=== PATIENT | female | born 1955 | race Caucasian/White ===

== ENCOUNTER → 2022-12-08 08:34 | Outpatient (CLI) | payer MEDICARE, OTHER, SELFPAY ==
--- NOTE | 2022-12-08 08:38 | DI.RAD.S_ITS ---
PROCEDURE: XR LUMBAR SPINE MIN 4V INDICATIONS: BACK PAIN TECHNIQUE: 5 views of the lumbar spine were acquired, including bilateral oblique views. COMPARISON: None. FINDINGS: Bones: 5 nonrib-bearing vertebrae are present. Lower lumbar facet arthropathy. Mild degenerative anterolisthesis of L4 on L5 measuring 6 mm. Multilevel disc height loss, most severe at L5-S1. . No vertebral body compression fractures. No suspicious bony lesions. Soft tissues: Overlying bowel gas pattern is normal. No suspicious soft tissue calcifications. Oblique images: No pars defects. IMPRESSION: Lower lumbar facet arthropathy. Degenerative disc disease. Comment: Lumbar spine MRI may be helpful. Dictated by: Shimon Foley M.D. on 12/08/2022 at 9:12 Approved by: Shimon Foley M.D. on 12/08/2022 at 9:13
== END ==
PROVIDERS: Referring Provider Physical Medicine & Rehabilitation; Visit Provider Physical Medicine & Rehabilitation
DX: M51.37 Other intervertebral disc degeneration, lumbosacral region (principal); M47.816 Spondylosis without myelopathy or radiculopathy, lumbar region; M43.16 Spondylolisthesis, lumbar region; M48.00 Spinal stenosis, site unspecified; M54.9 Dorsalgia, unspecified
CPT/HCPCS: 72110; 99214

== ENCOUNTER → 2022-12-22 08:15 | Outpatient (CLI) | payer MEDICARE, OTHER, SELFPAY ==
--- NOTE | 2022-12-22 08:18 | DI.MRI.S_ITS ---
PROCEDURE: MR LUMBAR SPINE WO CON INDICATIONS: L4-5 spondylolisthesis, axial low back pain TECHNIQUE: Noncontrast sagittal T1 spin echo and T2 fast echo, sagittal STIR, and T2 fast spin echo through the lumbar spine. In cases with scoliosis, additional coronal T2 fast spin echo may be performed. COMPARISON: [facility], CR, XR LUMBAR SPINE MIN 4V, 12/08/2022, 8:43. FINDINGS: Image quality: Excellent. Alignment and Curvature: Grade 1 anterolisthesis of L4 on L5. Bone Marrow: Marrow is of normal overall signal. No acute vertebral body compression fractures. Spinal Cord: Conus medullaris terminates at the L1-L2 level. Visualized cord demonstrates normal signal and size. Paraspinous Soft Tissues: No paravertebral masses. T12-L1: Facet arthropathy. No central canal or neural foraminal stenosis. L1-L2: Disc desiccation and minimal disc bulge. Facet arthropathy and thickened ligamentum flavum. Mild epidural lipomatosis. No central canal or neural foraminal stenosis. L2-L3: Disc desiccation and height loss with a posterior disc bulge. Facet arthropathy and thickening of the ligamentum flavum. Mild epidural lipomatosis. Mild to moderate central canal stenosis and narrowing of the lateral recesses. No neural foraminal stenosis. L3-L4: Disc desiccation and height loss with a posterior disc bulge. Facet arthropathy and thickening of the ligamentum flavum. Mild epidural lipomatosis. Mild central canal stenosis. No neural foraminal stenosis. L4-L5: Disc desiccation and height loss with a posterior disc bulge. Facet arthropathy and thickening of the ligamentum flavum. Mild epidural lipomatosis. Moderate central canal stenosis. Narrowing of the right greater than left lateral recesses with likely impingement of the descending right L5 nerve root. No neural foraminal stenosis. L5-S1: Facet arthropathy and thickening of ligamentum flavum. No central canal or neural foraminal stenosis. IMPRESSION: 1. Multilevel degenerative changes of the lumbar, most pronounced at L4-5. 2. At L4-5, there is moderate central canal stenosis with severe narrowing of the right lateral recess and likely impingement of the descending right L5 nerve root. 3. Additional levels of mild to moderate central canal stenosis as above. No significant neural foraminal narrowing. Dictated by: Xavier Randolph M.D. on 12/22/2022 at 11:32 Approved by: Xavier Randolph M.D. on 12/22/2022 at 11:37
== END ==
PROVIDERS: Referring Provider Physical Medicine & Rehabilitation; Visit Provider Physical Medicine & Rehabilitation
DX: M43.16 Spondylolisthesis, lumbar region (principal); M47.816 Spondylosis without myelopathy or radiculopathy, lumbar region; M47.817 Spondylosis without myelopathy or radiculopathy, lumbosacral region; M48.061 Spinal stenosis, lumbar region without neurogenic claudication
CPT/HCPCS: 72148